=== PATIENT | female | born 1975 | race Caucasian/White ===

== ENCOUNTER 2020-03-22 12:54 | Emergency (ER) | payer OTHER ==
[2020-03-22 13:05] VITALS: TEMP 98.5
[2020-03-22] MEDS ORDERED: IPRATROPIUM 0.5 MG/2.5 ML NEBU INHALATION STA (13:39)
[2020-03-22] MEDS ORDERED: ALBUTEROL NEBULIZED 2.5 MG/3 ML INHALATION STA (13:39)
[2020-03-22] MEDS ORDERED: methylPREDNISolone SOD SUCCI 125 MG/2 ML VIAL IV STA (13:39)
--- NOTE | 2020-03-22 14:11 | ED ---
General Adult HPI - General Chief complaint: Shortness of Breath Stated complaint: SOB Time Seen by Provider: 03/22/20 13:35 Source: patient, RN notes reviewed, old records reviewed Mode of arrival: ambulatory Limitations: no limitations - History of Present Illness Initial comments: 44 female presenting with dyspnea, cough. Patient was using spray foam insulation, there was multiple seizures both kerosene and propane. She began having some difficulty breathing. She had previous reaction similar to this within the past year. She was wearing a respirator. She denies any preceding cough or fever. No central chest pain. She has some chest tightness associated with her difficulty breathing. - Related Data Home Medications Medication Instructions Recorded Confirmed Multivitamins, Thera [Multivitamin 1 tab PO DAILY 03/22/20 03/22/20 (formulary)] Previous Rx's Medication Instructions Recorded Albuterol Nebulized [Ventolin 2.5 mg INHALATION Q4H #60 nebu 03/22/20 Nebulized] methylPREDNISolone Dose Pack 4 mg PO DIRECTED #21 package 03/22/20 [Medrol Dose Pack] Allergies Allergy/AdvReac Type Severity Reaction Status Date / Time Sulfa (Sulfonamide AdvReac Rash/Hives Verified 03/22/20 14:33 Antibiotics) Review of Systems ROS Statement: Those systems with pertinent positive or pertinent negative responses have been documented in the HPI. ROS Other: All systems not noted in ROS Statement are negative. Past Medical History Past Medical History: No Reported History History of Any Multi-Drug Resistant Organisms: None Reported Past Surgical History: No Surgical Hx Reported Past Psychological History: No Psychological Hx Reported Smoking Status: Never smoker Past Alcohol Use History: Occasional Past Drug Use History: None Reported General Exam Limitations: no limitations General appearance: alert, in no apparent distress Head exam: Present: atraumatic, normocephalic Eye exam: Present: normal appearance, PERRL ENT exam: Present: normal exam Neck exam: Present: normal inspection. Absent: tenderness, meningismus Respiratory exam: Present: respiratory distress (mild), rhonchi, decreased breath sounds Cardiovascular Exam: Present: regular rate, normal rhythm GI/Abdominal exam: Present: soft. Absent: distended, tenderness, guarding, rebound Extremities exam: Present: normal inspection, normal capillary refill. Absent: pedal edema, calf tenderness Neurological exam: Present: alert, oriented X3, CN II-XII intact. Absent: motor sensory deficit Psychiatric exam: Present: normal affect, normal mood Skin exam: Present: warm, dry, intact. Absent: cyanosis, diaphoretic Course Vital Signs 03/22/20 03/22/20 03/22/20 13:02 14:01 14:16 Temperature 98.5 F Pulse Rate 107 H 96 88 Respiratory 22 Rate Blood Pressure 131/81 O2 Sat by Pulse 95 Oximetry 03/22/20 14:32 Temperature Pulse Rate 104 H Respiratory 16 Rate Blood Pressure 136/81 O2 Sat by Pulse 100 Oximetry EKG Findings - EKG Comments: EKG Findings:: EKG: Sinus rhythm with PAC, rate of 86, OR interval 144, QRS duration 96, QTC [address] segment elevation. T-wave inversion in lead 3. Medical Decision Making - Medical Decision Making 44-year-old female with respiratory distress while using spray foam and multiple kerosene and propane heater's. Patient had improved after being removed from the environment. She has mild dyspnea on initial evaluation. X-ray performed, negative for pneumothorax, no acute findings, EKG sinus rhythm, normal CBC, normal CMP, negative troponin, I did obtain a carbon monoxide which is 2.4. She's given albuterol, Atrovent, steroids in the emergency department. She does not have a known history of asthma but has a positive family history of asthma and likely has a component of reactive airway. She maintains oxygenation normally wall emergency Department, no respiratory distress, improved at the time of reevaluation. She will be prescribed advised albuterol as well as a short course of steroids. She will stay away from work for the next several days. - Lab Data Result diagrams: 03/22/20 13:42 03/22/20 13:42 Lab Results 03/22/20 03/22/20 03/22/20 Range/Units 13:42 13:42 13:42 WBC 7.3 (3.8-10.6) k/uL RBC 4.24 (3.80-5.40) m/uL Hgb 14.3 (11.4-16.0) gm/dL Hct 41.6 (34.0-46.0) % MCV 98.0 (80.0-100.0) fL MCH 33.7 (25.0-35.0) pg MCHC 34.4 (31.0-37.0) g/dL RDW 12.1 (11.5-15.5) % Plt Count 229 (150-450) k/uL MPV 7.3 Neutrophils % 74 % Lymphocytes % 20 % Monocytes % 3 % Eosinophils % 1 % Basophils % 0 % Neutrophils # 5.4 (1.3-7.7) k/uL Lymphocytes # 1.5 (1.0-4.8) k/uL Monocytes # 0.2 (0-1.0) k/uL Eosinophils # 0.1 (0-0.7) k/uL Basophils # 0.0 (0-0.2) k/uL PT 10.6 (9.0-12.0) sec INR 1.0 (<1.2) APTT 22.4 (22.0-30.0) sec Carbon Monoxide, Quant (<10.0) % Sodium 136 L (137-145) mmol/L Potassium 4.1 (3.5-5.1) mmol/L Chloride 100 (98-107) mmol/L Carbon Dioxide 27 (22-30) mmol/L Anion Gap 9 mmol/L BUN 9 (7-17) mg/dL Creatinine 0.69 (0.52-1.04) mg/dL Est GFR (CKD-EPI)AfAm >90 (>60 ml/min/1.73 sqM) Est GFR (CKD-EPI)NonAf >90 (>60 ml/min/1.73 sqM) Glucose 113 H (74-99) mg/dL Plasma Lactic Acid Noe (0.7-2.0) mmol/L Calcium 10.1 (8.4-10.2) mg/dL Magnesium 1.8 (1.6-2.3) mg/dL Total Bilirubin 0.6 (0.2-1.3) mg/dL AST 35 (14-36) U/L ALT 14 (4-34) U/L Alkaline Phosphatase 58 (38-126) U/L Troponin I (0.000-0.034) ng/mL Total Protein 8.4 H (6.3-8.2) g/dL Albumin 5.0 (3.5-5.0) g/dL 03/22/20 03/22/20 03/22/20 Range/Units 13:42 13:42 13:42 WBC (3.8-10.6) k/uL RBC (3.80-5.40) m/uL Hgb (11.4-16.0) gm/dL Hct (34.0-46.0) % MCV (80.0-100.0) fL MCH (25.0-35.0) pg MCHC (31.0-37.0) g/dL RDW (11.5-15.5) % Plt Count (150-450) k/uL MPV Neutrophils % % Lymphocytes % % Monocytes % % Eosinophils % % Basophils % % Neutrophils # (1.3-7.7) k/uL Lymphocytes # (1.0-4.8) k/uL Monocytes # (0-1.0) k/uL Eosinophils # (0-0.7) k/uL Basophils # (0-0.2) k/uL PT (9.0-12.0) sec INR (<1.2) APTT (22.0-30.0) sec Carbon Monoxide, Quant 2.3 (<10.0) % Sodium (137-145) mmol/L Potassium (3.5-5.1) mmol/L Chloride (98-107) mmol/L Carbon Dioxide (22-30) mmol/L Anion Gap mmol/L BUN (7-17) mg/dL Creatinine (0.52-1.04) mg/dL Est GFR (CKD-EPI)AfAm (>60 ml/min/1.73 sqM) Est GFR (CKD-EPI)NonAf (>60 ml/min/1.73 sqM) Glucose (74-99) mg/dL Plasma Lactic Acid Noe 1.2 (0.7-2.0) mmol/L Calcium (8.4-10.2) mg/dL Magnesium (1.6-2.3) mg/dL Total Bilirubin (0.2-1.3) mg/dL AST (14-36) U/L ALT (4-34) U/L Alkaline Phosphatase (38-126) U/L Troponin I <0.012 (0.000-0.034) ng/mL Total Protein (6.3-8.2) g/dL Albumin (3.5-5.0) g/dL Disposition Clinical Impression: Reactive airway disease Disposition: HOME SELF-CARE Condition: Good Instructions (If sedation given, give patient instructions): Asthma (ED), R eactive Airways Disease (ED) Prescriptions: methylPREDNISolone Dose Pack [Medrol Dose Pack] 4 mg PO DIRECTED #21 package Albuterol Nebulized [Ventolin Nebulized] 2.5 mg INHALATION Q4H #60 nebu Is patient prescribed a controlled substance at d/c from ED?: No Referrals: Maribel Roland DO [Primary Care Provider] - 1-2 days Time of Disposition: 15:39
[2020-03-22 14:23] LABS: Basophils % (A) 0 %; Eosinophils # (A) 0.1 k/uL (0-0.7); Eosinophils % (A) 1 %; HCT 41.6 % (34.0-46.0); HGB 14.3 gm/dL (11.4-16.0); Lymphocytes # (A) 1.5 k/uL (1.0-4.8); Lymphocytes % (A) 20 %; MCH 33.7 pg (25.0-35.0); MCHC 34.4 g/dL (31.0-37.0); Mean Platelet Volume 7.3; Monocytes # (A) 0.2 k/uL (0-1.0); Monocytes % (A) 3 %; Neutrophils # (A) 5.4 k/uL (1.3-7.7); Neutrophils % (A) 74 %; Platelet Count 229 k/uL (150-450); RBC 4.24 m/uL (3.80-5.40); RDW 12.1 % (11.5-15.5); WBC 7.3 k/uL (3.8-10.6)
[2020-03-22 14:33] VITALS: BP 136/81; PULSE 104; RESP 16
[2020-03-22 14:35] LABS: ALT 14 U/L (4-34); AST 35 U/L (14-36); African American GFR (CKD) >90 (>60 ml/min/1.73 sqM); Alkaline Phosphatase 58 U/L (38-126); Anion Gap 9 mmol/L; Blood Urea Nitrogen 9 mg/dL (7-17); Calcium 10.1 mg/dL (8.4-10.2); Carbon Dioxide 27 mmol/L (22-30); Chloride 100 mmol/L (98-107); Glucose 113 mg/dL (74-99); Magnesium 1.8 mg/dL (1.6-2.3); Non-African American GFR(CKD) >90 (>60 ml/min/1.73 sqM); Potassium 4.1 mmol/L (3.5-5.1); Sodium 136 mmol/L (137-145); Total Bilirubin 0.6 mg/dL (0.2-1.3); Total Protein 8.4 g/dL (6.3-8.2)
--- NOTE | 2020-03-22 14:38 | XR ---
EXAMINATION TYPE: XR chest 2V DATE OF EXAM: 03/22/2020 COMPARISON: None INDICATION: Difficulty breathing TECHNIQUE: Frontal and lateral views of the chest are obtained. FINDINGS: The heart size is normal. The pulmonary vasculature is normal. The lungs are clear. IMPRESSION: 1. No acute pulmonary process.
[2020-03-22 14:46] LABS: Partial Thromboplastin Time 22.4 sec (22.0-30.0); Prothrombin Time 10.6 sec (9.0-12.0)
== END 2020-03-22 15:47 | disposition home or self-care (01) ==
LOC: EC 12:54
DX: J45.909 Unspecified asthma, uncomplicated (principal); Z88.2 Allergy status to sulfonamides
CPT/HCPCS: 36415; 94640; 93005; 80053; 82375; 83605; 83735; 84484; 85025; 85610; 85730; 71046; 99285; 96374; J2930